=== PATIENT | male | born 1975 | race Caucasian/White ===

== ENCOUNTER → 2016-12-11 | Outpatient (CLI) | payer BC ==
[~2016-12-11] MED LIST: DICLOFENAC PO; IBUPROFEN PO; PEN-VEE K PO; TETRACYCLINE PO
--- NOTE | ~2016-12-11 | CR181 ---
[facility] A Service of [facility] & [facility] RADIOLOGY TEXT RESULTS PATIENT: CONNIE HEAD LOCATION: [facility] : 79 UNIT #: [id number] AGE: [address]: PADMA SEWELL APRN SEX: M ORDER DR: [id number] [facility] [address] [place], [place] [address] [id number] O MR#: [id number] Acc #: [id number] NAME: CONNIE HEAD : 1975 SEX: M STUDY DATE/TIME: 12/11/2016 3:32 UNIT: [facility] ROOM: STUDY DESCRIPTION: CR Lumbar Spine 2 or 3 Views Attending Physician: Padma Sewell Aprn Ordering Physician: Padma Sewell Aprn Primary Care Physician: Primary Care Physician No MEDICAL IMAGING REPORT This report is preliminary unless electronic signature is present EXAM Lumbar spine, 12/11 HISTORY Low back pain for a few days after a lifting injury. FINDINGS AP and lateral projections of the lumbar segment show good mineralization of both anterior and posterior elements. They are all anatomically normal without indication of fracture, dislocation, or malignant change of a sclerotic or lytic type. There is no congenital defect noted. The sacroiliac joints are normal. IMPRESSION Normal lumbar spine. Dictated by... Mayito Kaiser Jr., M.D. THIS IS AN ELECTRONICALLY VERIFIED REPORT Mayito Kaiser Jr., M.D. at 12/11/2016 12:35 PM CHRISTI/hu TD: 12/11/2016 08:13 JOB #: [id number] MEDICAL IMAGING REPORT Page 1 of 1 COPY
--- NOTE | ~2016-12-11 | CR58 ---
[facility] A Service of [facility] & [facility] RADIOLOGY TEXT RESULTS PATIENT: CONNIE HEAD LOCATION: [facility] : 79 UNIT #: [id number] AGE: [address]: PADMA SEWELL APRN SEX: M ORDER DR: [id number] [facility] [address] [place], [place] [address] [id number] O MR#: [id number] Acc #: [id number] NAME: CONNIE HEAD : 1975 SEX: M STUDY DATE/TIME: 12/11/2016 3:28 UNIT: [facility] ROOM: STUDY DESCRIPTION: CR Cervical Spine 2 or 3 Views Attending Physician: Padma Sewell Aprn Ordering Physician: Padma Sewell Aprn Primary Care Physician: Primary Care Physician No MEDICAL IMAGING REPORT This report is preliminary unless electronic signature is present EXAM Cervical spine, 12/11 INDICATION Upper neck pain for a few days after a lifting injury. FINDINGS 4 views of the cervical spine were obtained. No comparison. No fracture or subluxation is seen. There is some mild degenerative disc disease at C5-6. Prevertebral soft tissues are normal. There is some straightening of the normal lordosis which could indicate muscle spasm. IMPRESSION Degenerative disc disease at C5-6. No fracture or subluxation. Straightening of the normal lordosis could indicate some component of muscle spasm. Dictated by... Mayito Kaiser Jr., M.D. THIS IS AN ELECTRONICALLY VERIFIED REPORT Mayito Kaiser Jr., M.D. at 12/11/2016 12:35 PM CHRISTI/hu TD: 12/11/2016 08:09 JOB #: [id number] MEDICAL IMAGING REPORT Page 1 of 1 COPY
== END | disposition home or self-care (01) ==
LOC: CRAD 03:17
DX: M54.5 Low back pain (principal); M54.2 Cervicalgia; M50.322 Other cervical disc degeneration at C5-C6 level
CPT/HCPCS: 72040; 72100